=== PATIENT | female | born 1985 | race Caucasian/White ===

== ENCOUNTER 2017-03-22 14:48 | Outpatient (CLI) | payer BC ==
--- NOTE | 2017-03-22 16:56 | ULT ---
COMPLETE OB ULTRASOUND 03/22/17 HISTORY: 32-year-old female for anatomy evaluation. Single viable intrauterine fetus in cephalic presentation. The placenta is posterior. Amniotic fluid is within normal limits. Cervical length equals 4 cm. ANATOMY: brain, four chamber heart, three vessel cord, stomach, bladder, kidneys, spine, and extremity r egions are unremarkable with less than optimal imaging of the posterior fossa. BIOMETRY: BPD 4.6 cm - - 20 weeks, 0 days Head circumference 17.2 cm - - 19 weeks, 6 days Abdominal circumference 14.6 cm - - 19 weeks, 6 days Femur length 3.4 cm - - 20 weeks, 5 days IMPRESSION: Unremarkable single viable intrauterine fetus. Gestational age by ultrasound examination 19 weeks, 6 days. EDC by ultrasound evaluation is 08/10/17, gestational age by LMP 20 weeks, 4 days. EDC by LMP 07/11 10/26. Estimated weight 339 grams. Unremarkable single viable IUP. POS: [facility]
== END 2017-03-22 14:49 | disposition home or self-care (01) ==
LOC: ULT 14:48
PROVIDERS: ATTEND Obstetrics & Gynecology
DX: Z34.92 Encounter for supervision of normal pregnancy, unspecified, second trimester (principal); Z3A.19 19 weeks gestation of pregnancy
CPT/HCPCS: 76805